=== PATIENT | male | born 1960 | race African-American/Black ===

== ENCOUNTER 2020-09-02 21:09 | Emergency (ER) | payer MEDICAID ==
[~2020-09-02] VITALS: Ht 170.2 cm; Wt 93.8 kg
[2020-09-02 23:25] LABS: EOSINOPHILS % 1.3 % (0.0-5.0); HEMATOCRIT. 46.3 % (42.0-52.0); HEMOGLOBIN. 15.3 g/dL (14.0-18.0); LYMPHOCYTES % 31.6 % (20.0-50.0); MEAN CORPUSCULAR HEMOGLOBIN 27.8 pg (28.0-32.0); MEAN CORPUSCULAR VOLUME 84.2 fL (80.0-94.0); MEAN PLATELET VOLUME 8.1 fl (7.4-10.4); MONOCYTES % 11.8 % (2.0-8.0); NEUTROPHILS % 54.3 % (40.0-76.0); PLATELET 274 x1000/uL (130-400); RED CELL DISTRIBUTION WIDTH 15.1 % (11.6-14.6)
[2020-09-02 23:36] LABS: CHLORIDE 106 mEq/L (98-107)
[2020-09-03 00:30] VITALS: BP 165/87
== END 2020-09-03 00:30 | disposition home or self-care (01) ==
LOC: ER 21:09
DX: R07.9 Chest pain, unspecified (principal); I16.0 Hypertensive urgency; I10 Essential (primary) hypertension
CPT/HCPCS: 36415; 71045; 80053; 83880; 85025; 93005; 99285